=== PATIENT | female | born 1995 | race Caucasian/White ===

== ENCOUNTER 2024-07-01 00:16 | Emergency (ER) | payer OTHER, SELFPAY ==
[2024-07-01 00:22] VITALS: BP 135/81; PULSE 95; RESP 12; TEMP 36.9; O2SAT 100; BMI 19.5
--- NOTE | 2024-07-01 00:23 | ED.DENTAL ---
HPI - Dental/Oral General Chief complaint: Dental/Oral Stated complaint: toothache rt side Time Seen by Provider: 07/01/24 00:23 Source: patient, RN notes reviewed and old records reviewed Mode of arrival: Ambulatory Limitations: no limitations History of Present Illness HPI Narrative: 29-year-old female presents with complaint of right posterior molar pain. Patient states she broke her molar several months ago has not given a lot of trouble in the last several days is having deeper more intense pain in that location that is now radiating back towards the ear. She denies fevers or chills. No swelling of the mouth, airway tongue or face. No redness. No nausea or vomiting. Patient has not had any purulent discharge or foul taste in mouth. She does have a dentist has not seen them. She states no daily prescription medications but has been taking Tylenol as needed for pain. Denies any major surgeries. No known drug allergies. Does use tobacco daily. Related Data Previous Rx's Medication Instructions Recorded penicillin V potassium 500 mg 500 mg PO QID #40 tabs 07/01/24 tablet Allergies Allergy/AdvReac Type Severity Reaction Status Date / Time No Known Drug Allergies Allergy Verified 07/01/24 00:25 Review of Systems Review of Systems ROS Unobtainable: All systems reviewed & are unremarkable except as noted in HPI and below Patient History Social History Smoking Status: Current every day smoker Exam Narrative Exam Narrative: GEN: well nourished, well appearing female, alert and oriented x [default value], patient appears to be in mild distress. HEENT: Atraumatic, pupils are equal round reactive to light, extraocular movements are intact, nares are clear, TMs are clear with no fluid, there is no conjunctival pallor. Throat is clear without any exudates, erythema, tonsillar enlargement or uvular deviation, patient has a cracked right posterior molar missing a portion, no significant swelling or fluctuance at the site. No swelling of the face cheek or airway. Patient is nontender externally. No bony tenderness. HEART: Regular rate and rhythm without murmur, clicks, rubs. LUNGS:Lungs clear to auscultation, no wheezes, rales, crackles, chest moves symmetrically ABD:bowel sounds normal, soft, non-tender, no guarding, rebound, rigidity, no masses noted, no hepatosplenomegaly MSCL: Full range of motion, normal gait NEURO:CN 2-12 intact, sensation normal. SKIN: No rash, erythema or other skin changes noted. Initial Vital Signs Initial Vital Signs: Vital Signs Temperature 98.5 F 07/01/24 00:22 Pulse Rate 95 H 07/01/24 00:22 Respiratory Rate 12 07/01/24 00:22 Blood Pressure 135/81 07/01/24 00:22 Pulse Oximetry 100 07/01/24 00:22 Oxygen Delivery Method Room Air 07/01/24 00:22 Course Orders Ordered: Discontinued Medications Penicillin V Potassium (Penicillin 250 Mg Tab Prepack) 1 bottle MISC DIRECTED ONE Stop: 07/01/24 00:36 Last Admin: 07/01/24 00:51 Dose: 1 bottle Documented By: ROBSON Vital Signs Vital signs: Vital Signs - 8 hr 07/01/24 00:22 07/01/24 00:56 Temperature 98.5 F Pulse Rate 95 H 98 H Respiratory Rate 12 18 Blood Pressure 135/81 112/70 Pulse Oximetry 100 98 Oxygen Delivery Method Room Air Room Air MDM - Dental/Oral MDM Narrative Medical decision making narrative: 29-year-old female with longstanding fracture to her right posterior molar patient has had increasing pain at that location now radiating towards her ear for the past several days. No clear infection but it was a potential we will give short course of antibiotics with the patient to follow up with a dentist for repair extraction as needed. Return precautions. Discharge Plan Departure Patient Disposition: Home Clinical Impression: Fracture of tooth Instructions: DI for Dental Pain Activity Restrictions/Additional Instructions: It is possible you are developing infection at the site of your fractured tooth. Please take antibiotics until completed. I do recommend that he follow up with a dentist in the short term for repair or extraction of the tooth. You have been given a prepack take 500 mg by mouth every 6 hours prescription for the remainder was sent to [facility]'s pharmacy. You can take acetaminophen up to a 1000 mg every 6 hours as needed for pain. Please return for fevers, new redness or swelling or increasing pain of the face, mouth or jaw, any swelling of the tongue, airway, difficulty swallowing secretions or changes to voice or other new or concerning changes. Prescriptions: New penicillin V potassium 500 mg tablet 500 mg PO QID Qty: 40 0RF Referrals: Hilda Maharaj [Other] Stand Alone Forms: Patient Portal/API/Survey
[2024-07-01] MEDS: PENICILLIN 250 MG TAB PREPACK 1 BOTTLE MISC (00:51)
[2024-07-01 00:56] VITALS: BP 112/70; PULSE 98; RESP 18; O2SAT 98
== END 2024-07-01 00:55 | disposition home or self-care (01) ==
PROVIDERS: Emergency Provider Emergency Medicine
DX: S02.5XXA Fracture of tooth (traumatic), initial encounter for closed fracture (principal); S06.9XAA Unspecified intracranial injury with loss of consciousness status unknown, initial encounter; X58.XXXA Exposure to other specified factors, initial encounter
CPT/HCPCS: 99281